=== PATIENT | female | born 1960 | race Caucasian/White ===

== ENCOUNTER 2016-10-08 14:30 | Inpatient (IN) | payer BC, OTHER ==
[2016-10-08] MEDS ORDERED: PHARMACY CONSULT - TPN XX SCH (16:23)
[2016-10-08] MEDS ORDERED: NS 1000 ML 1,000 ML IV ONE (16:23)
[2016-10-08] MEDS ORDERED: TUSSIONEX PENNKINETIC SUSP PO PRN (16:23)
[2016-10-08 17:01] VITALS: BMI 24.0
[2016-10-08 17:15] LABS: ALANINE AMINOTRANSFERASE 37 Units/L (12-78); ALBUMIN 3.4 g/dL (3.4-5.0); ALKALINE PHOSPHATASE 108 Units/L (46-116); ASPARTATE AMINO TRANSFERASE 30 Units/L (15-37); BLOOD UREA NITROGEN 18 mg/dL (7-18); CALCIUM 8.7 mg/dL (8.5-10.1); CARBON DIOXIDE 26.1 mmol/L (21-32); CHLORIDE 104 mmol/L (98-107); CREATININE 0.87 mg/dL (0.55-1.02); GLUCOSE 110 mg/dL (65-99); SODIUM 138 mmol/L (136-145); eGFR BLACK RACES > 60 (>60); eGFR NON BLACK RACES > 60 (>60)
[2016-10-08 17:16] LABS: BASOPHILS # (AUTO) 0.1 X10^3/uL (0.0-0.1); BASOPHILS % (AUTO) 0.7 % (0.2-1.0); EOSINOPHILS # (AUTO) 0.1 x10^3/uL (0.0-0.2); HEMATOCRIT 38.7 % (36.0-47.0); HEMOGLOBIN 13.7 g/dL (12.0-16.0); LYMPHOCYTES # (AUTO) 3.8 X10^3/uL (1.3-2.9); LYMPHOCYTES % (AUTO) 40.9 % (21.0-51.0); MEAN CORPUSCULAR HEMOGLOBIN 32.5 pg (27.0-34.0); MEAN CORPUSCULAR HGB CONC 35.4 g/dL (33.0-35.0); MEAN CORPUSCULAR VOLUME 91.9 fL (80.0-100.0); MEAN PLATELET VOLUME 7.8 fL (7.4-11.0); MONOCYTES # (AUTO) 1.3 x10^3/uL (0.3-0.8); MONOCYTES % (AUTO) 13.6 % (0.0-13.0); NEUTROPHILS % (AUTO) 43.8 % (42.0-75.0); PLATELET COUNT 250 X10^3/uL (150.0-450.0); RED BLOOD COUNT 4.21 X10^6/uL (3.5-5.4); RED CELL DISTRIBUTION WIDTH 13.6 % (11.6-16.5); WHITE BLOOD COUNT 9.2 X10^3/uL (3.6-10.0)
[2016-10-08] MEDS: ROBITUSSIN DM PO SCH ×2 (17:22→20:58)
[2016-10-08] MEDS: LEVAQUIN PREMIX IV 750 MG 750 MG/150 ML BAG IV SCH (17:26)
[2016-10-08] MEDS: FORTAZ or TAZICEF INJ 1 GM in NS 50 ML IV + SPIKE MINIBAG* 50 ML IV SCH ×2 (17:40→21:00)
--- NOTE | 2016-10-08 19:35 | RAD ---
HISTORY: Shortness of breath and weakness Study: PA and lateral chest Comparison: November 05, 2011 Findings: The trachea is midline. The cardiac silhouette is unremarkable. The lungs are clear without focal infiltrate or effusion. The bony thorax is unremarkable. IMPRESSION: 1. No acute cardiopulmonary disease. Reported By:
[2016-10-08] MEDS: NS 1000 ML 1,000 ML IV SCH (20:00)
[2016-10-08] MEDS: DUONEB 0.5 MG/3 MG NEB SCH (20:36)
[2016-10-08] MEDS: AMBIEN PO PRN (22:54)
[2016-10-09] MEDS: DUONEB 0.5 MG/3 MG NEB SCH ×6 (00:42→21:07)
[2016-10-09 05:32] LABS: BASOPHILS % (AUTO) 0.4 % (0.2-1.0); EOSINOPHILS # (AUTO) 0.1 x10^3/uL (0.0-0.2); HEMATOCRIT 31.3 % (36.0-47.0); HEMOGLOBIN 11.2 g/dL (12.0-16.0); LYMPHOCYTES # (AUTO) 3.5 X10^3/uL (1.3-2.9); LYMPHOCYTES % (AUTO) 43.8 % (21.0-51.0); MEAN CORPUSCULAR HEMOGLOBIN 32.9 pg (27.0-34.0); MEAN CORPUSCULAR HGB CONC 35.7 g/dL (33.0-35.0); MEAN CORPUSCULAR VOLUME 92.2 fL (80.0-100.0); MEAN PLATELET VOLUME 7.6 fL (7.4-11.0); MONOCYTES # (AUTO) 1.2 x10^3/uL (0.3-0.8); MONOCYTES % (AUTO) 15.1 % (0.0-13.0); NEUTROPHILS # (AUTO) 3.2 x10^3/uL (2.2-4.8); NEUTROPHILS % (AUTO) 39.7 % (42.0-75.0); PLATELET COUNT 185 X10^3/uL (150.0-450.0); RED CELL DISTRIBUTION WIDTH 13.2 % (11.6-16.5); WHITE BLOOD COUNT 8.1 X10^3/uL (3.6-10.0)
[2016-10-09 05:43] LABS: ALANINE AMINOTRANSFERASE 27 Units/L (12-78); ALBUMIN 2.6 g/dL (3.4-5.0); ALKALINE PHOSPHATASE 85 Units/L (46-116); ASPARTATE AMINO TRANSFERASE 22 Units/L (15-37); BLOOD UREA NITROGEN 13 mg/dL (7-18); CALCIUM 7.8 mg/dL (8.5-10.1); CARBON DIOXIDE 23.9 mmol/L (21-32); CHLORIDE 110 mmol/L (98-107); COR CA(FOR HYPOALB) 8.9 mg/dL (8.5-10.1); CREATININE 0.73 mg/dL (0.55-1.02); GLUCOSE 96 mg/dL (65-99); SODIUM 141 mmol/L (136-145); TOTAL PROTEIN 6.2 g/dL (6.4-8.2); eGFR BLACK RACES > 60 (>60); eGFR NON BLACK RACES > 60 (>60)
[2016-10-09] MEDS: FORTAZ or TAZICEF INJ 1 GM in NS 50 ML IV + SPIKE MINIBAG* 50 ML IV SCH ×3 (06:13→21:27)
[2016-10-09] MEDS ORDERED: PROCALAMINE 3 % 1,000 ML IV SCH (08:00)
[2016-10-09] MEDS: ROBITUSSIN DM PO SCH ×4 (08:20→20:24)
[2016-10-09] MEDS: LEVAQUIN PREMIX IV 750 MG 750 MG/150 ML BAG IV SCH (08:20)
[2016-10-09] MEDS: NS 1000 ML 1,000 ML IV SCH ×3 (08:22→18:39)
[2016-10-09] MEDS: PROCALAMINE 3 % 1,000 ML IV SCH (09:31)
--- NOTE | 2016-10-09 10:36 | DR.UPDATE ---
H&P Update History and Physical Update: WAS SEEN IN OUR OFFICE ON 10/08/16. A H&P WAS COMPLETED PRIOR TO ADMISSION. WE ADMITTED DENTON ON THE PNEUOMONIA PROTOCOL AND STARTED HER ON LEVAQUIN AND FORTAZ. PATIENT HAS BEEN SEEN AND EXAMINED WITH NO CHANGES NOTED. Changes noted: NO Yes with the following:
--- NOTE | 2016-10-09 12:06 | PCM.PROG ---
Progress Note - Progress Note for Day of Date: 10/09/16 - Subjective Subjective: IS ALERT AND ORIENTED ON MORNING ROUNDS. SHE IS SITTING UP IN BED WITH AT BEDSIDE. SHE IS NOTED WITH COMPLAINTS OF WEAKNESS AND SHORTNESS OF BREATH. LUNGS ARE NOTED WITH WHEEZING BILATERALLY. VITALS THIS AM ARE99.5-100-20-97%-129/59. CBC WNL EXCEPT RBC 3.40, HGB 11.2, HCT 31.3. CMP WNL EXCEPT CHLORIDE 110, CALCIUM 7.8, TOTAL PROTEIN 6.2, ALBUMIN 2.6. WE WILL CONTINUE CURRENT PLAN OF CARE, RECHECK LABS AND XRAY, AND FOLLOW UP WITH PATIENT IN AM. - Past Medical Family Social History Past Med/Fam/Surg Hx: No changes since H&P Allergies: Allergies Sulfa (Sulfonamide Antibiotics) Allergy (Verified 10/08/16 17:30) - Review of Systems ROS: No change since H&P - Vital Signs and I&O's Vital Signs: Temperature 98.5 F Pulse Rate [Right Brachial] 92 Pulse Rate 91 Respiratory Rate 18 Blood Pressure [Right Arm] 98/74 Blood Pressure 107/71 O2 Sat by Pulse Oximetry 100 Intake and Output: Intake & Output 10/07/16 10/08/16 10/09/16 10/10/16 11:59 11:59 11:59 11:59 Intake Total 2035 Output Total 500 Balance 1535 - Physical Exam Oriented: Normal. negative: Time, Person, Place, Not Oriented, Unable to test, Other Eyes: Normal. negative: Blurred Vision, Diplopia, Discharge, Pain, Redness, Photophobia, Other Ear: Normal. negative: Right, Left, Swelling, Ecchymosis, Hemotypanum, Abrasion , Laceration Nose: Normal. negative: Injected, Discharge, Blood, Other Throat: Normal. negative: Tonsillar Hypertrophy, Red, Exudate, Dry, Other Respiratory: Right, Left, Wheezes. negative: Normal, Generalized, Superior, Inferior, Diminished, Rales, Rhonchi, OTHER Cardiovascular: Normal : Normal Auscultation: Bowel Sounds: Normal. negative: Bruit, Absent, Increased, Decreased, High Pitched, Other Palpation: Normal Tenderness: Normal. negative: Diffuse, RUQ, RLQ, LUQ, LLQ, Epigastric, Periumbilical, Suprapubic, Mild, Moderate, Severe, Rebound, Guarding, Rigidity, Other Skin: Normal. negative: Decreased Turgur, Rash, Papular, Macular, Maculopapular , Vesicular, Pustular, Petechial, Red, Tender, Hot, Diaphoresis, Wound, Bruising , Ecchymosis, Other Musculoskeletal: Normal. negative: Right, Left, Shoulder, Clavicle, Arm, Elbow , Forearm, Wrist, Hand, Hip, Thigh, Knee, Leg, Ankle, Foot, Back:Thoracic, Back: Lumbar, Back:Midline, Back:Paraspinous, Pelvis, Swelling, Tender, Deformity, Pulse Deficit, Motor Deficit, Sensory Deficit, Instability, Crepitance Psychiatric: Normal. negative: Anxiety, Depression, Agitation, Other Mood Description: Calm. negative: Angry, Apathetic, Depressed, Fearful, Flat, Happy, Hostile, Sad, Suspicious, Withdrawn, Anxious, Appropriate, Labile Affect: Normal. negative: Angry, Anxious, Depressed, Flat, Hysterical, Quiet, Violent Speech Pattern: Clear, Appropriate - Laboratory and Diagnostics Result Diagrams: 10/09/16 04:55 10/09/16 04:55 Labs: Laboratory WBC 8.1 X10^3/uL (3.6-10.0) 10/09/16 04:55 RBC 3.40 X10^6/uL (3.5-5.4) L 10/09/16 04:55 Hgb 11.2 g/dL (12.0-16.0) L 10/09/16 04:55 Hct 31.3 % (36.0-47.0) L 10/09/16 04:55 MCV 92.2 fL (80.0-100.0) 10/09/16 04:55 MCH 32.9 pg (27.0-34.0) 10/09/16 04:55 MCHC 35.7 g/dL (33.0-35.0) H 10/09/16 04:55 RDW 13.2 % (11.6-16.5) 10/09/16 04:55 Plt Count 185 X10^3/uL (150.0-450.0) 10/09/16 04:55 MPV 7.6 fL (7.4-11.0) 10/09/16 04:55 Neut % 39.7 % (42.0-75.0) L 10/09/16 04:55 Lymph % 43.8 % (21.0-51.0) 10/09/16 04:55 [place] % 15.1 % (0.0-13.0) H 10/09/16 04:55 Eos % 1.0 % (0.9-2.9) 10/09/16 04:55 Baso % 0.4 % (0.2-1.0) 10/09/16 04:55 Neut # 3.2 x10^3/uL (2.2-4.8) 10/09/16 04:55 Lymph # 3.5 X10^3/uL (1.3-2.9) H 10/09/16 04:55 [place] # 1.2 x10^3/uL (0.3-0.8) H 10/09/16 04:55 Eos # 0.1 x10^3/uL (0.0-0.2) 10/09/16 04:55 Baso # 0.0 X10^3/uL (0.0-0.1) 10/09/16 04:55 Absolute Nucleated RBC 0.0 /100WBC 10/09/16 04:55 Sodium 141 mmol/L (136-145) 10/09/16 04:55 Corrected Sodium TNP 10/09/16 04:55 Potassium 3.7 mmol/L (3.5-5.1) 10/09/16 04:55 Chloride 110 mmol/L (98-107) H 10/09/16 04:55 Carbon Dioxide 23.9 mmol/L (21-32) 10/09/16 04:55 BUN 13 mg/dL (7-18) 10/09/16 04:55 Creatinine 0.73 mg/dL (0.55-1.02) 10/09/16 04:55 Est GFR (MDRD) Af Amer > 60 (>60) 10/09/16 04:55 Est GFR (MDRD) Non-Af > 60 (>60) 10/09/16 04:55 Glucose 96 mg/dL (65-99) 10/09/16 04:55 Calcium 7.8 mg/dL (8.5-10.1) L 10/09/16 04:55 Corrected Calcium 8.9 mg/dL (8.5-10.1) 10/09/16 04:55 Total Bilirubin 0.70 mg/dL (0.2-1.0) 10/09/16 04:55 AST 22 Units/L (15-37) 10/09/16 04:55 ALT 27 Units/L (12-78) 10/09/16 04:55 Alkaline Phosphatase 85 Units/L (46-116) 10/09/16 04:55 Total Protein 6.2 g/dL (6.4-8.2) L 10/09/16 04:55 Albumin 2.6 g/dL (3.4-5.0) L 10/09/16 04:55 Globulin 3.6 g/dL (2.5-4.5) 10/09/16 04:55 Albumin/Globulin Ratio 0.7 Ratio (1.1-2.1) L 10/09/16 04:55 - Plan (1) Bronchopneumonia Status: Acute Plan: PNEUMONIA PROTOCOL, CONTINUE LEVAQUIN, CONTINUE FORTAZ, CONTINUE TO MONITOR (2) Shortness of breath Status: Acute Plan: SUPPLEMENTAL OXYGEN, DUONEBS, CONTINUE TO MONITOR
[2016-10-09] MEDS ORDERED: PATIENT'S HOME MEDICATION (Naproxen [Naproxen] 1 TAB) PO PRN (12:07)
[2016-10-09] MEDS: ZESTORETIC 20/25 MG PO SCH ×3 (13:04→20:32)
[2016-10-09] MEDS: WELLBUTRIN SR 150 MG (BID) PO SCH (13:04)
[2016-10-09] MEDS: PROTONIX TAB 40 MG PO SCH ×2 (13:04→13:09)
[2016-10-09] MEDS: NAPROSYN PO SCH (20:27)
[2016-10-09] MEDS: AMBIEN PO PRN (20:27)
[2016-10-09] MEDS: FOLIC ACID TAB 1 MG PO SCH (20:31)
[2016-10-09] MEDS: ETODOLAC 400 MG PO SCH (20:31)
[2016-10-10] MEDS: DUONEB 0.5 MG/3 MG NEB SCH ×2 (01:05→05:30)
[2016-10-10] MEDS: FORTAZ or TAZICEF INJ 1 GM in NS 50 ML IV + SPIKE MINIBAG* 50 ML IV SCH ×3 (05:22→21:36)
[2016-10-10 06:12] LABS: BASOPHILS # (AUTO) 0.1 X10^3/uL (0.0-0.1); BASOPHILS % (AUTO) 0.6 % (0.2-1.0); EOSINOPHILS # (AUTO) 0.1 x10^3/uL (0.0-0.2); EOSINOPHILS % (AUTO) 1.2 % (0.9-2.9); HEMATOCRIT 32.7 % (36.0-47.0); HEMOGLOBIN 11.6 g/dL (12.0-16.0); LYMPHOCYTES # (AUTO) 2.9 X10^3/uL (1.3-2.9); LYMPHOCYTES % (AUTO) 26.8 % (21.0-51.0); MEAN CORPUSCULAR HEMOGLOBIN 32.7 pg (27.0-34.0); MEAN CORPUSCULAR HGB CONC 35.5 g/dL (33.0-35.0); MEAN CORPUSCULAR VOLUME 92.2 fL (80.0-100.0); MEAN PLATELET VOLUME 7.6 fL (7.4-11.0); MONOCYTES # (AUTO) 0.9 x10^3/uL (0.3-0.8); MONOCYTES % (AUTO) 8.6 % (0.0-13.0); NEUTROPHILS # (AUTO) 6.8 x10^3/uL (2.2-4.8); NEUTROPHILS % (AUTO) 62.8 % (42.0-75.0); PLATELET COUNT 231 X10^3/uL (150.0-450.0); RED BLOOD COUNT 3.55 X10^6/uL (3.5-5.4); RED CELL DISTRIBUTION WIDTH 13.5 % (11.6-16.5); WHITE BLOOD COUNT 10.9 X10^3/uL (3.6-10.0)
[2016-10-10 06:14] LABS: ALANINE AMINOTRANSFERASE 36 Units/L (12-78); ALKALINE PHOSPHATASE 98 Units/L (46-116); ASPARTATE AMINO TRANSFERASE 40 Units/L (15-37); BLOOD UREA NITROGEN 11 mg/dL (7-18); CALCIUM 8.5 mg/dL (8.5-10.1); CARBON DIOXIDE 25.1 mmol/L (21-32); CHLORIDE 107 mmol/L (98-107); COR CA(FOR HYPOALB) 9.3 mg/dL (8.5-10.1); CREATININE 0.75 mg/dL (0.55-1.02); GLUCOSE 109 mg/dL (65-99); SODIUM 140 mmol/L (136-145); TOTAL PROTEIN 6.8 g/dL (6.4-8.2); eGFR BLACK RACES > 60 (>60); eGFR NON BLACK RACES > 60 (>60)
--- NOTE | 2016-10-10 08:32 | RAD ---
HISTORY: Cough Study: Chest one view Comparison: October 08, 2016 Findings: The trachea is midline. The cardiac silhouette is mildly enlarged. No congestive heart failure is n oted.. The lungs are clear without focal infiltrate or effusion. The bony thorax is unremarkable. IMPRESSION: 1. Mild cardiomegaly without congestive heart failure 2. Lungs clear Reported By:
[2016-10-10] MEDS: LEVAQUIN PREMIX IV 750 MG 750 MG/150 ML BAG IV SCH (08:58)
[2016-10-10] MEDS: WELLBUTRIN SR 150 MG (BID) PO SCH (08:58)
[2016-10-10] MEDS: NAPROSYN PO SCH ×2 (08:59→21:36)
[2016-10-10] MEDS: ROBITUSSIN DM PO SCH ×4 (08:59→21:36)
[2016-10-10] MEDS: ETODOLAC 400 MG PO SCH ×2 (09:00→21:44)
[2016-10-10] MEDS: XOPENEX 1.25 MG/3 ML NEBULE NEB SCH ×4 (09:19→20:59)
[2016-10-10] MEDS: ZESTORETIC 20/25 MG PO SCH ×2 (09:30→21:45)
[2016-10-10] MEDS: PROTONIX TAB 40 MG PO SCH (09:30)
[2016-10-10] MEDS: SOLU-Medrol 40 MG VIAL IVP SCH ×3 (11:37→21:36)
[2016-10-10] MEDS: PROCALAMINE 3 % 1,000 ML IV SCH (11:38)
--- NOTE | 2016-10-10 16:29 | PCM.PROG ---
Progress Note - Progress Note for Day of Date: 10/10/16 - Subjective Subjective: IS ALERT AND ORIENTED ON MORNING ROUNDS. SHE IS LYING IN BED. SHE CONTINUES WITH WEAKNESS AND SHORTNESS OF BREATH. SHE ALSO REPORTS LOWER BACK PAIN AND ACHING ALL OVER. PATIENT STATES "I THINK MY ARTHRITIS IS FLARING UP". LUNGS ARE NOTED WITH WHEEZING BILATERALLY. VITALS THIS AM ARE 98.7- 77-18-97%-95/52. CBC REPORTS WBC 10.9, HGB 11.2, HCT 31.3. CMP REPORTS SODIUM 140, POTASSIUM 3.9, BUN 11, CREATININE 0.75, AST 40, ALT 30, ALBUMIN 3.0. ALL OTHER VALUES WNL. WE WILL START SOLU-MEDROL 40MG IV Q8H AND CONTINUE CURRENT PLAN OF CARE. WE PLAN TO RECHECK LABS AND XRAY AND FOLLOW UP WITH PATIENT IN AM. - Past Medical Family Social History Past Med/Fam/Surg Hx: No changes since H&P Allergies: Allergies Sulfa (Sulfonamide Antibiotics) Allergy (Verified 10/08/16 17:30) - Review of Systems ROS: No change since H&P - Vital Signs and I&O's Vital Signs: Temperature 98.3 F Pulse Rate [Right Brachial] 87 Pulse Rate 82 Respiratory Rate 18 Blood Pressure [Right Arm] 99/60 Blood Pressure 107/71 O2 Sat by Pulse Oximetry 98 Intake and Output: Intake & Output 10/08/16 10/09/16 10/10/16 10/11/16 11:59 11:59 11:59 11:59 Intake Total 5 2901 1957 Output Total 500 500 Balance 1535 2401 1957 - Physical Exam Oriented: Normal. negative: Time, Person, Place, Not Oriented, Unable to test, Other Eyes: Normal. negative: Blurred Vision, Diplopia, Discharge, Pain, Redness, Photophobia, Other Ear: Normal. negative: Right, Left, Swelling, Ecchymosis, Hemotypanum, Abrasion , Laceration Nose: Normal. negative: Injected, Discharge, Blood, Other Throat: Normal. negative: Tonsillar Hypertrophy, Red, Exudate, Dry, Other Respiratory: Right, Left, Wheezes. negative: Normal, Generalized, Superior, Inferior, Diminished, Rales, Rhonchi, OTHER Cardiovascular: Normal : Normal Auscultation: Bowel Sounds: Normal. negative: Bruit, Absent, Increased, Decreased, High Pitched, Other Palpation: Normal Tenderness: Normal. negative: Diffuse, RUQ, RLQ, LUQ, LLQ, Epigastric, Periumbilical, Suprapubic, Mild, Moderate, Severe, Rebound, Guarding, Rigidity, Other Skin: Normal. negative: Decreased Turgur, Rash, Papular, Macular, Maculopapular , Vesicular, Pustular, Petechial, Red, Tender, Hot, Diaphoresis, Wound, Bruising , Ecchymosis, Other Musculoskeletal: Normal. negative: Right, Left, Shoulder, Clavicle, Arm, Elbow , Forearm, Wrist, Hand, Hip, Thigh, Knee, Leg, Ankle, Foot, Back:Thoracic, Back: Lumbar, Back:Midline, Back:Paraspinous, Pelvis, Swelling, Tender, Deformity, Pulse Deficit, Motor Deficit, Sensory Deficit, Instability, Crepitance Psychiatric: Normal. negative: Anxiety, Depression, Agitation, Other Mood Description: Calm. negative: Angry, Apathetic, Depressed, Fearful, Flat, Happy, Hostile, Sad, Suspicious, Withdrawn, Anxious, Appropriate, Labile Affect: Normal. negative: Angry, Anxious, Depressed, Flat, Hysterical, Quiet, Violent Speech Pattern: Clear, Appropriate - Laboratory and Diagnostics Result Diagrams: 10/10/16 05:25 10/10/16 05:25 Labs: 10/08/16 16:50 Blood Blood Culture - Preliminary 10/08/16 16:40 Blood Blood Culture - Preliminary Laboratory WBC 10.9 X10^3/uL (3.6-10.0) H 10/10/16 05:25 RBC 3.55 X10^6/uL (3.5-5.4) 10/10/16 05:25 Hgb 11.6 g/dL (12.0-16.0) L 10/10/16 05:25 Hct 32.7 % (36.0-47.0) L 10/10/16 05:25 MCV 92.2 fL (80.0-100.0) 10/10/16 05:25 MCH 32.7 pg (27.0-34.0) 10/10/16 05:25 MCHC 35.5 g/dL (33.0-35.0) H 10/10/16 05:25 RDW 13.5 % (11.6-16.5) 10/10/16 05:25 Plt Count 231 X10^3/uL (150.0-450.0) 10/10/16 05:25 MPV 7.6 fL (7.4-11.0) 10/10/16 05:25 Neut % 62.8 % (42.0-75.0) 10/10/16 05:25 Lymph % 26.8 % (21.0-51.0) 10/10/16 05:25 [place] % 8.6 % (0.0-13.0) 10/10/16 05:25 Eos % 1.2 % (0.9-2.9) 10/10/16 05:25 Baso % 0.6 % (0.2-1.0) 10/10/16 05:25 Neut # 6.8 x10^3/uL (2.2-4.8) H 10/10/16 05:25 Lymph # 2.9 X10^3/uL (1.3-2.9) 10/10/16 05:25 [place] # 0.9 x10^3/uL (0.3-0.8) H 10/10/16 05:25 Eos # 0.1 x10^3/uL (0.0-0.2) 10/10/16 05:25 Baso # 0.1 X10^3/uL (0.0-0.1) 10/10/16 05:25 Absolute Nucleated RBC 0.0 /100WBC 10/10/16 05:25 Sodium 140 mmol/L (136-145) 10/10/16 05:25 Corrected Sodium TNP 10/10/16 05:25 Potassium 3.9 mmol/L (3.5-5.1) 10/10/16 05:25 Chloride 107 mmol/L (98-107) 10/10/16 05:25 Carbon Dioxide 25.1 mmol/L (21-32) 10/10/16 05:25 BUN 11 mg/dL (7-18) 10/10/16 05:25 Creatinine 0.75 mg/dL (0.55-1.02) 10/10/16 05:25 Est GFR (MDRD) Af Amer > 60 (>60) 10/10/16 05:25 Est GFR (MDRD) Non-Af > 60 (>60) 10/10/16 05:25 Glucose 109 mg/dL (65-99) H 10/10/16 05:25 Calcium 8.5 mg/dL (8.5-10.1) 10/10/16 05:25 Corrected Calcium 9.3 mg/dL (8.5-10.1) 10/10/16 05:25 Total Bilirubin 0.90 mg/dL (0.2-1.0) 10/10/16 05:25 AST 40 Units/L (15-37) H 10/10/16 05:25 ALT 36 Units/L (12-78) 10/10/16 05:25 Alkaline Phosphatase 98 Units/L (46-116) 10/10/16 05:25 Total Protein 6.8 g/dL (6.4-8.2) 10/10/16 05:25 Albumin 3.0 g/dL (3.4-5.0) L 10/10/16 05:25 Globulin 3.8 g/dL (2.5-4.5) 10/10/16 05:25 Albumin/Globulin Ratio 0.8 Ratio (1.1-2.1) L 10/10/16 05:25 - Plan (1) Bronchopneumonia Status: Acute Plan: PNEUMONIA PROTOCOL, CONTINUE LEVAQUIN, CONTINUE FORTAZ, CONTINUE TO MONITOR (2) Shortness of breath Status: Acute Plan: SUPPLEMENTAL OXYGEN, DUONEBS, CONTINUE TO MONITOR (3) Rheumatoid arthritis Status: Chronic Qualifiers: Rheumatoid arthritis location: multiple sites Rheumatoid factor presence: unspecified presence Laterality: L Qualified Code(s): M06.9 - Rheumatoid arthritis, unspecified Plan: SOLU-MEDROL 40MG IV Q8H, CONTINUE NAPROXEN, CONTINUE TO MONITOR (4) Hypertension Status: Acute Qualifiers: Hypertension type: essential hypertension Qualified Code(s): I10 - Essential (primary) hypertension Plan: CONTINUE ZESTORETIC, CONTINUE TO MONITOR (5) GERD (gastroesophageal reflux disease) Status: Acute Qualifiers: Esophagitis presence: esophagitis presence not specified Qualified Code(s) : K21.9 - Gastro-esophageal reflux disease without esophagitis Plan: CONTINUE PROTONIX, CONTINUE TO MONITOR (6) Depression Status: Acute Qualifiers: Depression Type: major depressive disorder Major depression recurrence: recurrent Active/Remission status: currently active Major depression episode severity: mild Psychotic features: P Trimester: T Qualified Code(s ): F33.0 - Major depressive disorder, recurrent, mild Plan: CONTINUE BUPROPION, CONTINUE TO MONITOR
[2016-10-10] MEDS: NS 1000 ML 1,000 ML IV SCH (21:43)
[2016-10-10] MEDS: FOLIC ACID TAB 1 MG PO SCH (21:44)
[2016-10-10] MEDS: AMBIEN PO PRN (23:19)
[2016-10-11] MEDS: SOLU-Medrol 40 MG VIAL IVP SCH (05:35)
[2016-10-11] MEDS: FORTAZ or TAZICEF INJ 1 GM in NS 50 ML IV + SPIKE MINIBAG* 50 ML IV SCH (05:35)
[2016-10-11 05:57] LABS: ALANINE AMINOTRANSFERASE 31 Units/L (12-78); ALBUMIN 2.9 g/dL (3.4-5.0); ALKALINE PHOSPHATASE 93 Units/L (46-116); ASPARTATE AMINO TRANSFERASE 21 Units/L (15-37); BLOOD UREA NITROGEN 19 mg/dL (7-18); CALCIUM 8.3 mg/dL (8.5-10.1); CARBON DIOXIDE 24.7 mmol/L (21-32); CHLORIDE 107 mmol/L (98-107); COR CA(FOR HYPOALB) 9.2 mg/dL (8.5-10.1); CREATININE 0.93 mg/dL (0.55-1.02); SODIUM 141 mmol/L (136-145); TOTAL PROTEIN 6.7 g/dL (6.4-8.2); eGFR BLACK RACES > 60 (>60); eGFR NON BLACK RACES > 60 (>60)
[2016-10-11 06:20] LABS: COR NA(FOR HYPERGLY) 144 mmol/L (136-145); GLUCOSE 209 mg/dL (65-99)
[2016-10-11 06:21] LABS: BASOPHILS % (AUTO) 0.1 % (0.2-1.0); HEMOGLOBIN 10.7 g/dL (12.0-16.0); LYMPHOCYTES % (AUTO) 7.9 % (21.0-51.0); MEAN CORPUSCULAR HEMOGLOBIN 32.7 pg (27.0-34.0); MEAN CORPUSCULAR HGB CONC 35.5 g/dL (33.0-35.0); MEAN CORPUSCULAR VOLUME 92.1 fL (80.0-100.0); MEAN PLATELET VOLUME 7.7 fL (7.4-11.0); MONOCYTES # (AUTO) 0.3 x10^3/uL (0.3-0.8); MONOCYTES % (AUTO) 2.3 % (0.0-13.0); NEUTROPHILS # (AUTO) 11.2 x10^3/uL (2.2-4.8); NEUTROPHILS % (AUTO) 89.7 % (42.0-75.0); PLATELET COUNT 261 X10^3/uL (150.0-450.0); RED BLOOD COUNT 3.26 X10^6/uL (3.5-5.4); RED CELL DISTRIBUTION WIDTH 13.3 % (11.6-16.5); WHITE BLOOD COUNT 12.5 X10^3/uL (3.6-10.0)
[2016-10-11] MEDS: PROCALAMINE 3 % 1,000 ML IV SCH ×2 (06:34→08:30)
[2016-10-11] MEDS: ETODOLAC 400 MG PO SCH (08:25)
[2016-10-11] MEDS: ZESTORETIC 20/25 MG PO SCH (08:25)
[2016-10-11] MEDS: LEVAQUIN PREMIX IV 750 MG 750 MG/150 ML BAG IV SCH (08:26)
[2016-10-11] MEDS: PROTONIX TAB 40 MG PO SCH (08:26)
[2016-10-11] MEDS: NAPROSYN PO SCH (08:26)
[2016-10-11] MEDS: ROBITUSSIN DM PO SCH (08:27)
[2016-10-11] MEDS: WELLBUTRIN SR 150 MG (BID) PO SCH (08:27)
[2016-10-11] MEDS: XOPENEX 1.25 MG/3 ML NEBULE NEB SCH (08:37)
[2016-10-11 10:15] VITALS: BP 127/61
[2016-10-11] MEDS: NS 1000 ML 1,000 ML IV SCH (10:24)
== END 2016-10-11 10:30 | disposition home or self-care (01) | DRG 194 ==
LOC: ICU 14:30
PROVIDERS: ADMIT Internal Medicine; ATTEND Internal Medicine
DX: J18.0 Bronchopneumonia, unspecified organism (principal); R06.02 Shortness of breath; R53.1 Weakness; I10 Essential (primary) hypertension; M05.80 Other rheumatoid arthritis with rheumatoid factor of unspecified site; R79.1 Abnormal coagulation profile; K21.9 Gastro-esophageal reflux disease without esophagitis; M54.5 Low back pain; F33.0 Major depressive disorder, recurrent, mild
CPT/HCPCS: 36415; 71010; 71020; 80053; 85025; 87040; 94640; A4222; B5200; S0106; J0713; J1956; J2920; J7620

== ENCOUNTER → 2017-03-13 | Outpatient (CLI) | payer OTHER ==
--- NOTE | 2017-03-13 12:34 | RAD ---
Examination: Right hand, three views History: Contusion Findings: There is apparent fracture of the distal neck of the 4th metacarpal. A definite fracture li ne is not identified although the contour deformity is suggestive of fracture. Adjacent joint space i s not involved. Soft tissue swelling is present. Impression: Probable acute fracture distal neck 4th metacarpal. Correlate clinically. Reported By:
== END ==
LOC: RAD 10:44
PROVIDERS: ATTEND Obstetrics & Gynecology Obstetrics
DX: S60.221A Contusion of right hand, initial encounter (principal); X58.XXXA Exposure to other specified factors, initial encounter
CPT/HCPCS: 73130

== ENCOUNTER 2017-05-29 17:58 | Emergency (ER) | payer BC, OTHER ==
[2017-05-29 18:03] VITALS: BMI 26.2
--- NOTE | 2017-05-29 18:09 | DR.URIAD ---
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 She has been treated for ear infection and sinusitis on last week but is no better. She denies fever, vomiting or diarrhea. She denies cigarettes. Spouse is a smoker. Chief Complaint:: PT WAS SEEN BY FARZANEH LAST WEEK AND PT DX, EAR INFECTIONS AND SINUSITIS, PT C/O > SOB TODAY , KESSLER, CHEST PAIN ,AND BAD COUGH". - Source History Provided: Patient - Mode of Arrival Mode of Arrival: Ambulatory - Timing Onset of Chief Complaint: 05/22/17 - Context Recent Treated Infections: Otitis Media History of Respiratory: None - Quality Quality of Cough: Nonproductive Rhinorrhea: Clear Shortness of Breath: Moderate - Associated Signs and Symptoms Other Signs and Symptoms: None PMH - PMH Past Medical History: No Past Surgical History: No Surgical History: Cholecystectomy, Other - Family History History of Family Medical Conditions: No Family Medical History: Diabetes Mellitus, CA, Sudden Cardiac , Hypertension - Social History Does patient currently use any type of tobacco product: No Have you used tobacco products in the last 12 months: No Type of Tobacco Use: None Does any household member use tobacco: No Alcohol Use: None Do you use any recreational Drugs:: No Lives With: Family Lives Where: Home - infectious screening In the last 2 months have you had wt loss of >10#?: NO Have you had fever, night sweats or hemotysis?: No Have you traveled outside the country in the last 6 months?: No Isolation: Standard ROS - Review of Systems Eyes: No Symptoms Reported ENTM: No Symptoms Reported Respiratoy: No Symptoms Reported Cardiovascular: No Symptoms Reported Gastrointestinal/Abdominal: No Symptoms Reported Genitourinary: No Symptoms Reported Neurological: No Symptoms Reported Musculoskeletal: No Symptoms Reported Integumentary: No Symptoms Reported Hematologic/Lymphatic: No Symptoms Reported Endocrine: No Symptoms Reported Psychiatric: No Symptoms Reported All Other Systems: Reviewed and Negative PE - Vital Signs Vitals: Temperature 99 F Pulse Rate 99 Respiratory Rate 18 Blood Pressure [Right Arm] 127/61 Blood Pressure 142/82 O2 Sat by Pulse Oximetry 97 - General Limitations: No Limitations General Appearance: Alert, Anxious - Head Head Exam: Normal Inspection, Atraumatic - Eyes Eye exam: Normal Appearance, PERRL, EOMI - ENT ENT Exam: Normal Exam External Ear Exam: Normal External Inspection TM/Canal Exam: Left Normal Nasal Speculum Exam: Bilateral Normal Mouth Exam: Normal Inspection Throat Exam: Normal Inspection - Neck Neck Exam: Normal Inspection, Full ROM - Chest Chest Inspection: Normal Inspection - Respiratory Respiratory Exam: Normal Lung Sounds Bilat Respiratory Exam: Bilateral Clear to Auscultation - Abdominal Exam Abdominal Exam: Normal Inspection, Normal Bowel Sounds Abdominal Tenderness: negative: RUQ, RLQ, LUQ, LLQ, Epigastrium, Suprapubic, Diffuse, Mild, Moderate, Severe, Other - Extremeties Extremities Exam: Normal Inspection, Full ROM - Back Back Exam: Normal Inspection - Neurologic Neurological Exam: Alert, Oriented X3, CN II-XII Intact - Psychiatric Psychiatric Exam: Normal Affect - Skin Skin Exam: Warm, Dry, Intact Course - Treatment Treatment: DuoNeb treatment - Reevaluation 1st: Improved - Education/Counseling Educated On: Treatment, Diagnosis, Prognosis, Needs for Follow Up ROR - Labs Reviewed Result Diagrams: 05/29/17 18:38 05/29/17 18:38 Laboratory: WBC 17.6 X10^3/uL (3.6-10.0) H 05/29/17 18:38 RBC 4.63 X10^6/uL (3.5-5.4) 05/29/17 18:38 Hgb 14.1 g/dL (12.0-16.0) 05/29/17 18:38 Hct 41.0 % (36.0-47.0) 05/29/17 18:38 MCV 88.5 fL (80.0-100.0) 05/29/17 18:38 MCH 30.5 pg (27.0-34.0) 05/29/17 18:38 MCHC 34.5 g/dL (33.0-35.0) 05/29/17 18:38 RDW 14.2 % (11.6-16.5) 05/29/17 18:38 Plt Count 412 X10^3/uL (150.0-450.0) 05/29/17 18:38 MPV 6.9 fL (7.4-11.0) L 05/29/17 18:38 Neut % (Auto) 53.5 % (42.0-75.0) 05/29/17 18:38 Lymph % (Auto) 36.2 % (21.0-51.0) 05/29/17 18:38 [place] % (Auto) 9.3 % (0.0-13.0) 05/29/17 18:38 Eos % (Auto) 0.4 % (0.9-2.9) L 05/29/17 18:38 Baso % (Auto) 0.6 % (0.2-1.0) 05/29/17 18:38 Neut # (Auto) 9.4 x10^3/uL (2.2-4.8) H 05/29/17 18:38 Lymph # (Auto) 6.4 X10^3/uL (1.3-2.9) H 05/29/17 18:38 [place] # (Auto) 1.6 x10^3/uL (0.3-0.8) H 05/29/17 18:38 Eos # (Auto) 0.1 x10^3/uL (0.0-0.2) 05/29/17 18:38 Baso # (Auto) 0.1 X10^3/uL (0.0-0.1) 05/29/17 18:38 Absolute Nucleated RBC 0.0 /100WBC 05/29/17 18:38 D-Dimer < 100 ng/mL (0-400) 05/29/17 18:38 Sodium 138 mmol/L (136-145) 05/29/17 18:38 Corrected Sodium TNP 05/29/17 18:38 Potassium 3.5 mmol/L (3.5-5.1) 05/29/17 18:38 Chloride 101 mmol/L (98-107) 05/29/17 18:38 Carbon Dioxide 25.0 mmol/L (21-32) 05/29/17 18:38 BUN 29 mg/dL (7-18) H 05/29/17 18:38 Creatinine 1.04 mg/dL (0.55-1.02) H 05/29/17 18:38 Est GFR (MDRD) Af Amer > 60 (>60) 05/29/17 18:38 Est GFR (MDRD) Non-Af 58 (>60) L 05/29/17 18:38 Glucose 92 mg/dL (65-99) 05/29/17 18:38 Calcium 9.0 mg/dL (8.5-10.1) 05/29/17 18:38 Corrected Calcium TNP 05/29/17 18:38 Total Bilirubin 0.30 mg/dL (0.2-1.0) 05/29/17 18:38 AST 16 Units/L (15-37) 05/29/17 18:38 ALT 34 Units/L (12-78) 05/29/17 18:38 Alkaline Phosphatase 103 Units/L (46-116) 05/29/17 18:38 C-Reactive Protein 1.20 mg/L (0-3.0) 05/29/17 18:38 Total Protein 8.1 g/dL (6.4-8.2) 05/29/17 18:38 Albumin 3.6 g/dL (3.4-5.0) 05/29/17 18:38 Globulin 4.5 g/dL (2.5-4.5) 05/29/17 18:38 Albumin/Globulin Ratio 0.8 Ratio (1.1-2.1) L 05/29/17 18:38 - XRAY XRAY Interpreted by: Radiologist (Chest: Mild COPD without other acute chest process.) - Diagnosis Discharge Problem: COPD (chronic obstructive pulmonary disease) Qualifiers: COPD type: unspecified COPD Qualified Code(s): J44.9 - Chronic obstructive pulmonary disease, unspecified - Discharge Plan Condition: Stable - Follow ups/Referrals Follow ups/Referrals: Ramon Cesar [Primary Care Provider] - 3 days - Instructions
--- NOTE | 2017-05-29 18:33 | RAD ---
Chest PA and lateral Indication: Ear infection sinusitis. Dyspnea. Findings: There is no pneumothorax or effusion. There is no consolidation. Heart size is normal. Lung s appear mildly hyperinflated. Impression: Mild COPD without other acute chest process Reported By:
[2017-05-29] MEDS ORDERED: DUONEB 0.5 MG/3 MG NEB ONE (18:37)
[2017-05-29] MEDS ORDERED: DECADRON JET NEB (RESP USE) NEB ONE ×2 (18:38→18:50)
[2017-05-29 18:48] LABS: BASOPHILS # (AUTO) 0.1 X10^3/uL (0.0-0.1); BASOPHILS % (AUTO) 0.6 % (0.2-1.0); EOSINOPHILS # (AUTO) 0.1 x10^3/uL (0.0-0.2); EOSINOPHILS % (AUTO) 0.4 % (0.9-2.9); HEMOGLOBIN 14.1 g/dL (12.0-16.0); LYMPHOCYTES # (AUTO) 6.4 X10^3/uL (1.3-2.9); LYMPHOCYTES % (AUTO) 36.2 % (21.0-51.0); MEAN CORPUSCULAR HEMOGLOBIN 30.5 pg (27.0-34.0); MEAN CORPUSCULAR HGB CONC 34.5 g/dL (33.0-35.0); MEAN CORPUSCULAR VOLUME 88.5 fL (80.0-100.0); MEAN PLATELET VOLUME 6.9 fL (7.4-11.0); MONOCYTES # (AUTO) 1.6 x10^3/uL (0.3-0.8); MONOCYTES % (AUTO) 9.3 % (0.0-13.0); NEUTROPHILS # (AUTO) 9.4 x10^3/uL (2.2-4.8); NEUTROPHILS % (AUTO) 53.5 % (42.0-75.0); PLATELET COUNT 412 X10^3/uL (150.0-450.0); RED BLOOD COUNT 4.63 X10^6/uL (3.5-5.4); RED CELL DISTRIBUTION WIDTH 14.2 % (11.6-16.5); WHITE BLOOD COUNT 17.6 X10^3/uL (3.6-10.0)
[2017-05-29] MEDS ORDERED: DUONEB 0.5 MG/3 MG ONE (18:49)
[2017-05-29] MEDS ORDERED: NS 1000 ML 1,000 ML IV SCH (19:00)
[2017-05-29 19:03] LABS: ALANINE AMINOTRANSFERASE 34 Units/L (12-78); ALBUMIN 3.6 g/dL (3.4-5.0); ALKALINE PHOSPHATASE 103 Units/L (46-116); ASPARTATE AMINO TRANSFERASE 16 Units/L (15-37); BLOOD UREA NITROGEN 29 mg/dL (7-18); CHLORIDE 101 mmol/L (98-107); CREATININE 1.04 mg/dL (0.55-1.02); SODIUM 138 mmol/L (136-145); TOTAL PROTEIN 8.1 g/dL (6.4-8.2); eGFR BLACK RACES > 60 (>60); eGFR NON BLACK RACES 58 (>60)
[2017-05-29] MEDS ORDERED: TUSSIONEX PENNKINETIC SUSP PO ONE (19:25)
[2017-05-29] MEDS ORDERED: TUSSIONEX PENNKINETIC SUSP ONE (19:32)
[2017-05-29 19:43] VITALS: BP 144/67
== END 2017-05-29 19:43 | disposition home or self-care (01) ==
LOC: ER 17:58
DX: J44.9 Chronic obstructive pulmonary disease, unspecified (principal)
CPT/HCPCS: 36415; 71046; 80053; 85025; 85378; 86140; 93005; 93010; 94640; 99283; J7620